=== PATIENT | female | born 1955 | race Caucasian/White ===

== ENCOUNTER → 2018-03-26 06:46 | Outpatient (CLI) | payer MEDICARE, SELFPAY ==
--- NOTE | 2018-03-26 06:48 | ECHOL_ITS ---
Reason For Study: Pericardial effusion, SOB Procedure This was a limited 2D transthoracic echocardiogram. The exam was of adequate technical quality. Exam performed in department. Left Ventricle Normal LV size. Moderate global left ventricular systolic dysfunction. The estimated ejection fraction is 30 %. Right Ventricle Normal RV size. Normal systolic function. Atria The left atrium is mildly enlarged. Normal right atrium. Mitral Valve There is no mitral annular calcification. Normal mitral valve. Tricuspid Valve Normal tricuspid valve. Aortic Valve Trisinus/trileaflet aortic valve. Normal aortic valve. Pulmonic Valve The pulmonic valve is not well visualized. Great Vessels Normal sized aortic root. Pericardium/Pleural Moderate pericardial effusion. There are no echocardiographic indications of cardiac tamponade. MMode/2D Measurements & Calculations LVIDd: 4.4 cm IVSd: 1.4 cm Ao root diam: 2.7 cm LVIDs: 3.4 cm LVPWd: 1.2 cm LA dimension: 4.2 cm RVDd: 2.6 cm FS: 22.5 % LAV(MOD-sp4): 55.8 ml LA A4 area: 19.0 cm2 RA A4 area: 8.1 cm2 Interpretation Summary Moderate global left ventricular systolic dysfunction. The estimated ejection fraction is 30 %. The left atrium is mildly enlarged. Moderate pericardial effusion. There are no echocardiographic indications of cardiac tamponade. Ordering Physician: Lv Kelsey Referring Physician: Lv Kelsey Performed By: Stacy Garcia RDCS
--- NOTE | 2018-03-26 10:23 | STRESSREP_ITS ---
Stress Test Report Date: 03/26/2018 Procedure: Pharmacologic stress nuclear imaging study Indications: Shortness of breath/dyspnea; cardiomyopathy Consent: Per the patient Procedure: The patient underwent pharmacologic (Regadenoson) evaluation with a peak heart rate of 105 beats per minute (35 predicted maximal heart rate) and a peak blood pressure of 160/90 mmHg. The baseline ECG demonstrated sinus rhythm; poor R-wave progression; nonspecific ST and T-wave abnormality. The peak pharmacologic ECG demonstrated continued nonspecific ST and T-wave abnormality. There were no cardiac dysrhythmias pretest, during pharmacologic infusion, or recovery. There was no complaint of chest discomfort during pharmacologic infusion or recovery. The examination was discontinued secondary to completion of protocol. Impression: 1. Pharmacologic (Regadenoson) evaluation 2. Peak pharmacologic ECG with nonspecific ST and T-wave abnormality. 3. No cardiac dysrhythmias pretest, during pharmacologic infusion, or recovery 4. Nuclear images pending Myocardial perfusion imaging study: Technique: The patient was injected with 10.4 millicuries of technetium 99m Cardiolite and subsequently rest SPECT Cardiolite nuclear imaging was obtained in the horizontal long, vertical long, and short axis views. The patient underwent pharmacologic (Regadenoson) evaluation with a peak heart rate of 105 beats per minute (35 % percent predicted maximal heart rate) and a peak blood pressure of 160/90 mmHg. The patient was injected with 34 millicuries of technetium 99m Cardiolite and subsequently stress SPECT Cardiolite nuclear imaging was obtained in the horizontal long, vertical long, and short axis views. A gated Cardiolite study at peak stress was obtained. Interpretation: Rest and stress SPECT Cardiolite nuclear imaging status post realignment, normalization, and attenuation correction demonstrate the appearance of relative uniform tracer uptake and myocardial perfusion appearing within normal limits. There is diminished end systolic thickening and brightening. The gated Cardiolite study demonstrates diminished myocardial thickening and inward wall motion.. The reported LVEF is 40 %. Impression: 1. Rest and stress SPECT Cardiolite nuclear imaging demonstrate relative uniform tracer uptake and myocardial perfusion appearing within normal limits. 2. The gated Cardiolite study reports an LVEF of 40%. 3. The aforementioned findings appear compatible with an underlying cardiomyopathy This note was generated with [employer] software. It may contain incorrect words, spelling, and punctuation that were not noted in checking the note before signing.
== END ==
PROVIDERS: Visit Provider Internal Medicine Cardiovascular Disease
DX: I50.21 Acute systolic (congestive) heart failure (principal); R06.02 Shortness of breath
CPT/HCPCS: 78452; 93017; 93308; A9500; A4216; J2785

== ENCOUNTER → 2019-02-03 12:45 | Outpatient (CLI) | payer MEDICARE, SELFPAY ==
[2019-01-26 09:43] VITALS: BMI 28.5
--- NOTE | 2019-02-03 12:47 | ECHOL_ITS ---
Reason For Study: Pericardial effusion Procedure This was a limited 2D transthoracic echocardiogram. Limited views were obtained. Exam performed in department. Left Ventricle Normal LV size. Left ventricular systolic function is normal. The estimated ejection fraction is 55 %. Unable to assess diastolic dysfunction. No regional wall motion abnormalities noted. Right Ventricle Normal RV size. Normal systolic function. Atria Normal left atrium. Normal right atrium. Mitral Valve There is no mitral annular calcification. Normal mitral valve. Tricuspid Valve Normal tricuspid valve. Aortic Valve Trisinus/trileaflet aortic valve. Normal aortic valve. Pulmonic Valve The pulmonic valve is not well visualized. Great Vessels Normal sized aortic root. Pericardium/Pleural Small pericardial effusion. There are no echocardiographic indications of cardiac tamponade. MMode/2D Measurements & Calculations LVIDd: 3.6 cm IVSd: 1.3 cm Ao root diam: 3.1 cm LVIDs: 2.5 cm LVPWd: 1.2 cm RVDd: 2.9 cm FS: 29.1 % LAV(MOD-bp): 38.2 ml EDV(MOD-sp4): 57.5 ml EDV(MOD-sp2): 46.1 ml LAV(MOD-bp) Indexed: 21.8 ml/m2 ESV(MOD-sp4): 25.0 ml EF(MOD-sp2): 61.2 % LAV(MOD-sp2): 39.0 ml EF(MOD-sp4): 56.5 % LAV(MOD-sp4): 37.9 ml SV(MOD-sp4): 32.5 ml SV(MOD-sp2): 28.2 ml LA A4 area: 14.9 cm2 LA dimension(2D): 3.7 cm RA A4 area: 9.2 cm2 Interpretation Summary Limited views were obtained. Left ventricular systolic function is normal. The estimated ejection fraction is 55 %. Small pericardial effusion. There are no echocardiographic indications of cardiac tamponade. Unable to assess diastolic dysfunction. Ordering Physician: Rene Rabago/Lv Kelsey Referring Physician: Aylin Alvarez Performed By: Stacy Garcia RDCS
== END ==
PROVIDERS: Family Provider Internal Medicine; PCP Internal Medicine; Referring Provider Nurse Practitioner Family; Visit Provider Nurse Practitioner Family
DX: I31.3 Pericardial effusion (noninflammatory) (principal); I42.8 Other cardiomyopathies
CPT/HCPCS: 93308

== ENCOUNTER → 2019-05-11 | Outpatient (CLI) | payer MEDICARE, SELFPAY ==
[2019-01-26 09:43] VITALS: BMI 28.5
--- NOTE | 2019-05-11 08:49 | ECHOD_ITS ---
Reason For Study: Pericardial effusion Procedure This was a 2D Doppler, Color Flow transthoracic echocardiogram. Exam performed in department. Left Ventricle Normal LV size. Left ventricular systolic function is normal. The estimated ejection fraction is 65 %. Diastolic function is indeterminate. No regional wall motion abnormalities noted. Right Ventricle Normal RV size. Normal systolic function. Atria Normal left atrium. Normal right atrium. No doppler evidence for ASD. Mitral Valve There is no mitral annular calcification. Normal mitral valve. Trivial mitral valve insufficiency. Tricuspid Valve Normal tricuspid valve. Trivial tricuspid valve insufficiency. Aortic Valve Trisinus/trileaflet aortic valve. Normal aortic valve. Pulmonic Valve The pulmonic valve is not well visualized. Trivial pulmonic valve insufficiency. Great Vessels Normal sized aortic root. Pericardium/Pleural Small pericardial effusion. There are no echocardiographic indications of cardiac tamponade. MMode/2D Measurements & Calculations LVIDd: 3.6 cm IVSd: 0.86 cm Ao root diam: 3.1 cm LVIDs: 2.6 cm LVPWd: 0.90 cm RVDd: 2.4 cm FS: 27.9 % LAV(MOD-bp): 46.3 ml LVAd ap4: 23.3 cm2 SV(MOD-sp4): 33.3 ml LAV(MOD-bp) Indexed: 26.3 ml/m2 EDV(MOD-sp4): 58.2 ml LAV(MOD-sp2): 57.6 ml EDV(sp4-el): 60.4 ml LAV(MOD-sp4): 36.0 ml LVAs ap4: 13.7 cm2 ESV(MOD-sp4): 24.9 ml ESV(sp4-el): 23.8 ml EF(MOD-sp4): 57.2 % EF(sp4-el): 60.6 % SV(sp4-el): 36.6 ml LA A4 area: 14.6 cm2 LA dimension(2D): 3.6 cm RA A4 area: 9.5 cm2 Doppler Measurements & Calculations MV E max feliz: 44.1 cm/sec Lat Peak E' Feliz: 4.0 cm/sec Med Peak E' Feliz: 2.5 cm/sec MV A max feliz: 86.4 cm/sec E/E' lat: 11.0 E/E' med: 17.5 MV E/A: 0.51 Ao V2 max: 123.4 cm/sec LV V1 max: 84.0 cm/sec PA V2 max: 73.8 cm/sec Ao max P.1 mmHg LV V1 max P.8 mmHg Interpretation Summary Left ventricular systolic function is normal. The estimated ejection fraction is 65 %. Trivial mitral valve insufficiency. Trivial tricuspid valve insufficiency. Trivial pulmonic valve insufficiency. Small pericardial effusion. There are no echocardiographic indications of cardiac tamponade. Diastolic function is indeterminate. Ordering Physician: Lv Kelsey Referring Physician: Aylin Posadas Performed By: Stacy Garcia ED
== END | disposition home or self-care (01) ==
PROVIDERS: Family Provider Internal Medicine; PCP Internal Medicine; Referring Provider Internal Medicine Cardiovascular Disease; Visit Provider Internal Medicine Cardiovascular Disease
DX: I31.3 Pericardial effusion (noninflammatory) (principal); I42.8 Other cardiomyopathies; I50.21 Acute systolic (congestive) heart failure
CPT/HCPCS: 93306

== ENCOUNTER → 2020-01-04 10:48 | Outpatient (CLI) | payer MEDICARE, SELFPAY ==
[2019-01-26 09:43] VITALS: BMI 28.5
[2019-09-13 09:50] VITALS: BMI 28.5
--- NOTE | 2020-01-04 10:50 | ECHOL_ITS ---
Reason For Study: Pericardial effusion, Non-Isch CMP Procedure This was a limited 2D transthoracic echocardiogram. Myocardial strain analysis was performed in this exam to aid in the assessment of cardiac function. Limited views were obtained. Exam performed in department. Left Ventricle Normal LV size. Left ventricular systolic function is normal. The estimated ejection fraction is 60 %. The global longitudinal strain = -17% (borderline). Unable to assess diastolic dysfunction. No regional wall motion abnormalities noted. Right Ventricle Normal RV size. Normal systolic function. Atria Normal left atrium. Normal right atrium. Mitral Valve There is no mitral annular calcification. Normal mitral valve. Tricuspid Valve Normal tricuspid valve. Aortic Valve Trisinus/trileaflet aortic valve. Normal aortic valve. Pulmonic Valve The pulmonic valve is not well visualized. Great Vessels Normal sized aortic root. Pericardium/Pleural Trivial pericardial effusion. There are no echocardiographic indications of cardiac tamponade. MMode/2D Measurements & Calculations LVIDd: 4.3 cm IVSd: 0.97 cm Ao root diam: 3.1 cm LVIDs: 2.6 cm LVPWd: 1.00 cm FS: 38.8 % LA dimension(2D): 3.6 cm Interpretation Summary Limited views were obtained. Left ventricular systolic function is normal. The estimated ejection fraction is 60 %. The global longitudinal strain = -17% (borderline). Trivial pericardial effusion. There are no echocardiographic indications of cardiac tamponade. Unable to assess diastolic dysfunction. Ordering Physician: Lv Kelsey Referring Physician: Aylni Alvarez Performed By: Stacy Garcia RDCS
== END ==
PROVIDERS: Family Provider Internal Medicine; PCP Internal Medicine; Referring Provider Internal Medicine Cardiovascular Disease; Visit Provider Internal Medicine Cardiovascular Disease
DX: I42.8 Other cardiomyopathies (principal); I31.3 Pericardial effusion (noninflammatory)
CPT/HCPCS: 93308

== ENCOUNTER 2020-08-14 10:26 | Observation (INO) | payer MEDICARE, SELFPAY ==
[2020-03-13 09:03] VITALS: BMI 28.5
[2020-08-14] VITALS (16 sets, daily range): BP systolic 94–212; BP diastolic 58–111; PULSE 63–100; RESP 13–24; TEMP 36.3–36.9; O2SAT 95–99; BMI 26.5; BMI 26.9
--- NOTE | 2020-08-14 10:37 | EKG12_ITS ---
Test Reason : AM EKG Blood Pressure : / mmHG Vent. Rate : 077 BPM Atrial Rate : 077 BPM P-R Int : 234 ms QRS Dur : 096 ms QT Int : 402 ms P-R-T Axes : 049 -24 062 degrees QTc Int : 454 ms Sinus rhythm with 1st degree A-V block Septal infarct , age undetermined , cannot be excluded Abnormal ECG Confirmed by MIKALA DOZIER, CASH ([id number]), copy editor LEXIE JEAN ([id number]) on 08/17/2020 10:22:03 AM Referred By: DR ANGUIANO Confirmed By:CASH BACH MD
--- NOTE | 2020-08-14 10:45 | ED.VIS.GEN ---
History of Present Illness Chief Complaint: Chest Pain Informant: Patient Onset: Today Narrative: 64-year-old female with past medical history of hypertension and diabetes presents with concern for chest pain. States it began approximately 6 hours ago. States it is aching in nature. States she does feel some tingling in her left arm. Denies any nausea, vomiting, diaphoresis. Denies any shortness of breath. Family history of heart disease. Former smoker. Past Medical History - Allergies and Home Meds Allergies/Adverse Reactions: Allergies aloe vera [From Vagisil] Allergy (Severe, Verified 08/14/20 10:27) Itching benzocaine [From Vagisil] Allergy (Severe, Verified 08/14/20 10:27) Itching levofloxacin [From Levaquin] Allergy (Severe, Verified 08/14/20 10:27) Swelling mineral oil [From Vagisil] Allergy (Severe, Verified 08/14/20 10:27) Itching resorcinol [From Vagisil] Allergy (Severe, Verified 08/14/20 10:27) Itching starch [From Vagisil] Allergy (Severe, Verified 08/14/20 10:27) Itching Sulfa (Sulfonamide Antibiotics) Allergy (Severe, Verified 08/14/20 10:27) Itching vitamin E (d-alpha tocopherol) [From Vagisil] Allergy (Severe, Verified 08/14/20 10:27) Itching vitamins A and D [From Vagisil] Allergy (Severe, Verified 08/14/20 10:27) Itching Prior records reviewed: Yes Past Medical History: - - HTN and DMII Smoking Status: Former smoker Alcohol: None Drugs: None Review of Systems General: Denies: Chills, Fever, Sweats Eyes: Denies: Visual changes - bilaterally, Diplopia ENT: Denies: Rhinorrhea, Sore throat Cardiovascular: Reports: Chest pain. Denies: Palpitations Respiratory: Denies: Dyspnea, Cough, Dyspnea on exertion Gastrointestinal: Denies: Abdominal pain, Nausea, Vomiting, Diarrhea, Melena, Hematochezia Genitourinary: Denies: Dysuria, Hematuria, Frequency Musculoskeletal: Denies: Back pain, Extremity Pain Skin: Denies: Rash, Wounds Neurological: Reports: Parasthesia. Denies: Headache, Weakness, Numbness Physical Exam Vital Signs/Narrative: Vital Signs Temp Pulse Resp BP Pulse Ox 08/14/20 10:28 97.3 F L 100 16 212/111 H 99 Inital Vital Signs reviewed: Yes General: Well nourished, Well developed, No Acute Distress Head: Normocephalic, Atraumatic Eyes: Perrl, EOMI ENT: Moist mucous membranes, No rhinorrhea Neck: Supple, Nontender Cardiovascular: Regular rate, Regular rhythm, No murmurs Respiratory: No distress, CTA bilaterally, Chest nontender Abdomen: Soft, Nontender, Nondistended, Normal bowel sounds Back: Nontender, Normal Inspection Extremities: Nontender, No edema Skin: Normal color, No rash Neurological: Alert, Oriented x3, Cranial nerves II-XII grossly intact, Normal Strength, Normal Sensation Psychological: Normal affect, Normal Mood Diagnostic/Tx/Re-eval Chest X-Ray - ED: 1 View, Normal Clinical Impression(s) from Imaging Studies Chest X-Ray 08/14/20 11:15 IMPRESSION: Normal x-ray examination of the chest. Electronically Signed: Mian Bingham MD at 12:32 EDT Tel , Service support , Laboratory Data 08/14/20 08/14/20 10:48 10:48 WBC 4.2 L RBC 3.45 L Hgb 10.6 L Hct 34.2 L MCV 99.1 H MCH 30.7 MCHC 31.0 L RDW Std Deviation 45.7 H RDW Coeff of Leni 12.5 Plt Count 211 MPV 9.4 Immature Gran % (Auto) 0.200 Neut % (Auto) 59.4 Lymph % (Auto) 31.1 [place] % (Auto) 7.2 Eos % (Auto) 1.9 Baso % (Auto) 0.2 Absolute Neuts (auto) 2.5 Absolute Lymphs (auto) 1.29 Nucleated RBC % 0 Sodium 138 Potassium 4.6 Chloride 105 Carbon Dioxide 25.0 Anion Gap 8 BUN 43 H Creatinine 3.16 H Estim Creat Clear Calc 15.27 Est GFR (MDRD) Af Amer 19 L Est GFR (MDRD) Non-Af 16 L BUN/Creatinine Ratio 13.6 Glucose 186 H Calcium 9.5 Magnesium 2.5 Troponin I < 0.015 - Rhythm Strip Rhythm Strip: Sinus Rhythm Rate: 91 Ectopy: None - EKG Initial EKG Interpretation: Sinus Rhythm - Sinus rhythm at 91 bpm. SD interval 194 ms. QTC of 474 ms. No evidence of ST elevation or depression at this time. - Medical Decision Making Patient appears well and nontoxic. EKG nonischemic. Troponin negative. CKD at baseline. Given patient's extensive risk factors she will be admitted for further treatment evaluation. Patient given aspirin and nitroglycerin. Did have some chest pain reduction with nitroglycerin. Blood pressure reduced with nitroglycerin but quickly rebounded. Patient will take her home clonidine dose. Chest x-ray negative. Admitted in stable condition. 1. Chest pain 2. Uncontrolled hypertension 3. History of diabetes ED Disposition - Plan for ED Patient: Disposition: Acute Care [facility]
[2020-08-14] MEDS: Aspirin 81 MG TAB.CHEW 324 MG PO (10:54)
[2020-08-14] MEDS: Nitroglycerin SL (ED/IMG/CATH) 0.4 MG TABLET SUBLINGUAL ×2 (10:56→11:00)
[2020-08-14 10:57] LABS: Absolute Lymphocyte Count 1.29 X10^3/uL (0.83-4.51); Absolute Neutrophil Count 2.5 X10^3/uL (2.0-7.7); Basophil# 0.01 X10^3/uL; Basophil% 0.2 % (0-1); Eosinophil# 0.08 X10^3/uL; Eosinophils% 1.9 % (0-5); Hematocrit 34.2 % (37-47); Hemoglobin 10.6 g/dL (12.0-15.0); Lymphocyte # 1.29 X10^3/ul (4.0); Lymphocyte % 31.1 % (19-41); Mean Corpuscular Hgb 30.7 pg (27.0-32.0); Mean Corpuscular Volume 99.1 fL (81-99); Mean Platelet Vol. 9.4 fl (6.2-12.0); Monocyte% 7.2 % (0-10); NRBC Flagged by Analyzer 0 % (0-5); Neutrophil # 2.46 X10^3/uL (2.7-7.7); Neutrophil % 59.4 % (47-70); Platelet Count 211 K/mm3 (150-450); RBC Distribution Width CV 12.5 % (11.6-14.6); RBC Distribution Width SD 45.7 fl (35.1-43.9); Red Blood Count 3.45 M/mm3 (4.2-5.4); White Blood Count 4.2 K/mm3 (4.4-11.0)
[2020-08-14] MEDS: 0.9% Normal Saline 1,000 ML 500 ML IV (11:10)
[2020-08-14 11:14] LABS: Anion Gap 8 (5-15); BUN 43 mg/dL (7-18); BUN/Creat Ratio 13.6 RATIO (10-20); Calcium,Total 9.5 mg/dL (8.5-10.1); Chloride 105 mmol/L (98-107); Creatinine, Serum 3.16 mg/dL (0.55-1.02); EST Glomerular Filtration Rate 16 mL/min (>60); Est Glom Filt Rate - Afr Amer 19 mL/min (>60); Estimated Creatinine Clearance 15.27 ml/min; Glucose 186 mg/dL (74-106); Magnesium 2.5 mg/dL (1.6-2.6); Potassium 4.6 mmol/L (3.5-5.1); Sodium Level 138 mmol/L (136-145)
--- NOTE | 2020-08-14 11:15 | RAD_ITS ---
STUDY: X-RAY CHEST REASON FOR EXAM: Female, 64 years old. chest pain, epigastric pain TECHNIQUE: Single AP portable view of the chest. COMPARISON: 09/03/2011 FINDINGS: The lungs are clear and expanded. There is no demonstrated pleural abnormality. Normal size heart. Normal mediastinum and [place]. Normal visualized pulmonary arteries. Normal visualized aortic arch and descending thoracic aorta. Normal visualized thoracic spine. Normal visualized ribs, clavicles, and shoulders. There is no demonstrated abnormality of the visualized soft tissue structures of the upper abdomen. RAD/Chest 1 View (Portable) IMPRESSION: Normal x-ray examination of the chest. Electronically Signed: Mian Bingham MD at 12:32 EDT Tel , Service support ,
--- NOTE | 2020-08-14 13:52 | PCM.HP.STD ---
Problem List (1) CKD (chronic kidney disease) stage 4, GFR 15-29 ml/min Status: Chronic (2) Renal transplant recipient Status: Chronic Comment: 2011 with failing transplant and on tranplant list currently at [facility] (3) Anemia Status: Chronic Qualifiers: Anemia type: due to chronic kidney disease (4) Diabetes Status: Chronic Qualifiers: Diabetes mellitus type: type 2 (5) Nonischemic cardiomyopathy Status: Chronic (6) Pure hypercholesterolemia Status: Chronic (7) Essential (primary) hypertension Status: Chronic (8) Cardiomegaly Status: Chronic History of Present Illness Date of Admission: 08/14/20 Chief Complaint: CP Ms Moreira is a 64 yo female who presented to the ED at [facility] on 08/14/2020 with CP. She has a PMH of CKD stage 4 with previous transplant (2011) and is currently on the transplant list at [facility], HTN, HPL, Non-ischemic CM, DM-2, chronic anemia, depression, and gout. She states that she awoke at about 4 am today and had burning in her chest in the epigastric area and L arm tingling. She states that she took 2 APAP, had a cup of tea and went back to sleep. She the awoke at about 7 and the arm tingling was gone but the burning in the epigastrium persisted. Her father had an HI and had similar sx so she decided to come to the ED for evaluation. She stated that her CP was about a 2/10 when she got here, had no associated sx and was given nitro which reduced her pain to 0.5/10. A second nitro was given and dropped her pressure. She is now CP free. She has been markedly hypertensive in the ED (except when given the nitro) and states that she normally runs in the 130/70 range at home with her meds. She admits to having white coat HTN as well. She states that she is due for her clonidine now. Her VS are otherwise stable. EKG shows no ST/T wave changes c/w ischemia and her initial troponin in the ED was neg despite sCr of 3.16. She states that her baseline sCr is about 2.8-3.2. She has anemia which is chronic and her BGT is 186. She remains CP free at this time. She states that she had a Stress test at [facility] > 1 yr ago that was negative. Past Medical History Past Medical History (Chronic Problems): Chronic Problems (Last Reviewed 09/13/19 @ 09:57 by Dawna Simmons) CKD (chronic kidney disease) stage 4, GFR 15-29 ml/min (Chronic) Renal transplant recipient (Chronic) 2011 with failing transplant and on tranplant list currently at [facility] Anemia (Chronic) Diabetes (Chronic) Nonischemic cardiomyopathy (Chronic) Pure hypercholesterolemia (Chronic) Essential (primary) hypertension (Chronic) Cardiomegaly (Chronic) Medical History: Medical History (Last Reviewed 08/14/20 @ 14:[address] Nicky Mathis, DO) Nonischemic cardiomyopathy (Chronic) I42.8 Pure hypercholesterolemia (Chronic) E78.00 Essential (primary) hypertension (Chronic) I10 Cardiomegaly (Chronic) I51.7 Type 2 diabetes mellitus E11.9 Allergies aloe vera [From Vagisil] Allergy (Severe, Verified 08/14/20 10:27) Itching benzocaine [From Vagisil] Allergy (Severe, Verified 08/14/20 10:27) Itching levofloxacin [From Levaquin] Allergy (Severe, Verified 08/14/20 10:27) Swelling mineral oil [From Vagisil] Allergy (Severe, Verified 08/14/20 10:27) Itching resorcinol [From Vagisil] Allergy (Severe, Verified 08/14/20 10:27) Itching starch [From Vagisil] Allergy (Severe, Verified 08/14/20 10:27) Itching Sulfa (Sulfonamide Antibiotics) Allergy (Severe, Verified 08/14/20 10:27) Itching vitamin E (d-alpha tocopherol) [From Vagisil] Allergy (Severe, Verified 08/14/20 10:27) Itching vitamins A and D [From Vagisil] Allergy (Severe, Verified 08/14/20 10:27) Itching Home Medications: Ambulatory Orders Medication Instructions Recorded fluticasone propionate 50 2 spray INTRANASAL DAILY 03/10/18 mcg/actuation nasal spray,suspension linagliptin 5 mg tablet 5 mg PO LUNCH 03/10/18 loratadine 10 mg tablet 10 mg PO DAILY 03/10/18 dulaglutide 1.5 mg/0.5 mL 1.5 mg SC TH 03/11/18 subcutaneous pen injector multivit with 1 tab PO DAILY tab 03/11/18 lhallrtm-pxpz-HA-lutein 8 mg iron-400 mcg-300 mcg tablet pravastatin 20 mg tablet 20 mg PO QHS 03/11/18 mycophenolate mofetil 250 mg 750 mg PO BID cap 07/31/18 capsule calcitriol 0.25 mcg capsule 0.25 mcg PO MOWEFR cap 01/26/19 glipizide 10 mg tablet 10 mg PO BID tab 01/26/19 iron,carbonyl 65 mg-vitamin C 125 1 tab PO TID tab 01/26/19 mg tablet,delayed release clonidine HCl 0.2 mg tablet 0.2 mg PO BID tab 09/13/19 Baking soda liquid 0.5 tsp PO 03/13/20 cholecalciferol (vitamin D3) 50 5,000 unit PO DAILY cap 03/13/20 mcg (2,000 unit) capsule cyclosporine 25 mg capsule 50 mg PO BID 03/13/20 polyethylene glycol 3350 17 17 g PO QODAY g 03/13/20 gram/dose oral powder Allopurinol 100 mg PO DAILY 08/14/20 Aspirin E.C. [Ecotrin] 81 mg PO DAILY@0800 08/14/20 Bupropion HCl [Wellbutrin Xl] 300 mg PO DAILY 08/14/20 Carvedilol 6.25 mg PO BID 08/14/20 Famotidine 20 mg PO DAILY 08/14/20 Isosorbide Mononitrate [Isosorbide 30 mg PO DAILY 08/14/20 Mononitrate ER] Sodium Bicarbonate 325 mg PO DAILY 08/14/20 Surgical History: Surgical History (Last Reviewed 08/14/20 @ 14:[address] Nicky Mathis DO) Kidney transplant recipient Onset Date: ~2011 Z94.0 H/O local excision of skin lesion Z98.890 skin ca removed rt arm History of arthroscopic knee surgery Z98.890 History of cataract surgery Z98.49 Status post biopsy of kidney Z98.890 Psychiatric History: Depression RIG HAND History: No pertinent RIG HAND history Lives: Spouse/ Significant Other Smoking Status: Former smoker Alcohol: None Drugs: None Review of Systems Constitutional: Denies: Anorexia, Chills, Fever, Malaise, Weakness, Weight Change, Fatigue Eyes: Denies: Blurred vision, Conjunctivae Inflammation, Drainage, Eyelid Inflammation, Pain, Redness, Vision Change HEENT: Denies: Difficulty Hearing, Ear Pain, Eye Pain, Head Aches, Nasal bleeding, Nasal Congestion, Post Nasal Drip, Sinus Congestion, Sinus Drainage, Sore Throat, Visual Changes Cardiovascular: Reports: Chest Pain, Chest Pressure. Denies: Claudication, Chest Tightness, Edema, Heaviness, Light Headedness, Orthopnea, Palpitations, Paroxysmal Noc. Dyspnea, Syncope Respiratory: Denies: Cough, Hemoptysis, Pleuritic Pain, Shortness of Breath, Shortness of breath at rest, Shortness of breath upon exertion, Sputum production, Wheezing Gastrointestinal: Reports: Dyspepsia. Denies: Abdominal Pain, Constipation, Diarrhea, Hematemesis, Hematochezia, Nausea, Melena, Vomiting Genitourinary: Denies: Dysuria, Frequency, Hematuria, Hesitancy, Incontinence, Nocturia, Retention, Urgency Musculoskeletal: Denies: Arm Pain, Back Pain, Joint stiffness, Joint swelling, Joint Tenderness, Leg Pain, Muscle pain, Neck Pain Skin: Denies: Dryness, Jaundice, Lesions, Pruritis, Rash, Skin Changes, Wounds Neurological: Denies: Balance problems, Blurred vision, Double vision, Change in Speech, Slurred speech, Confusion, Difficulty swallowing, Focal weakness, Headaches, Incoordination, Numbness, Tremor, Seizures Psychiatric: Reports: Depression. Denies: Anxiety Endocrine: Denies: Change in Body Habitus, Heat/ Cold Intolerance, Polydipsia, Polyuria Hematologic/ Lymphatic: Reports: Anemia, Easy Bruising, Easy Bleeding. Denies: Adenopathy, Petechiae, Purpura VTE Information - Inpt Only VTE Present on Admission: No VTE Mechan Device Prophylaxis: None VTE Pharm Prophylaxis ordered?: Yes - Physical Exam Vitals/I&O's: Vital Signs Temp Pulse Resp BP Pulse Ox 97.3 F L 85 24 H 198/109 H 96 08/14/20 10:28 08/14/20 13:39 08/14/20 13:39 08/14/20 13:39 08/14/20 13:39 Oxygen Delivery Method Room Air Weight: 68.039 kg Body Mass Index (BMI) 26.5 General: Alert, Oriented x3, Cooperative, No apparent distress, Well developed, Well nourished, - - very pleasant WF lying in bed, appears comfortable HEENT: Atraumatic, PERRLA, EOMI, Normocephalic, EAC Clear Oral: Moist Mucosa, No Gingival or Mucosal Lesions/ Ulcerations Neck: Supple, No JVD, Negative Carotid Bruits, Negative Hepatojugular Reflux, No Nuchal Rigidity, Trachea Midline, Thyroid Normal Size and Texture Lungs: Clear to auscultation, Normal air movement, No rhonchi, No wheeze, No rales Cardiovascular: Regular rate, Regular Rhythm, Normal S1, Normal S2, No murmurs, No Ectopic Activity, Gallops - S4, - Abdomen: Bowel Sounds Present, Soft, Non Tender, Non-Distended, No Hepato-splenomegaly, No hernias noted Extremities: No clubbing, No cyanosis, No edema, Capillary Refill Less than 3 Seconds, Peripheral Pulses Normal Skin: No rashes, No breakdown Musculoskeletal: No Tenderness to Palpation of Joints or Extremities, No Muscle Wasting, Arthritic Changes Lymphatic: No Cervical, Supraclavicular, or Inguinal Adenopathy Neurological: Cranial nerves II-XII grossly intact, Deep Tendon Reflexes 2+/4 and Symmetrical, Neuro grossly intact, Motor Exam 5/5 strength throughout, Muscle tone normal, Sensory exam intact to light touch and pain, Coordination normal Psych/Mental Status: Normal Affect, Appropriate, Alert and oriented to time, place, person, mood and affect Laboratory Results 08/14/20 10:48: WBC 4.2 L, RBC 3.45 L, Hgb 10.6 L, Hct 34.2 L, MCV 99.1 H, MCH 30.7, MCHC 31.0 L, RDW Std Deviation 45.7 H, RDW Coeff of Leni 12.5, Plt Count 211, MPV 9.4, Immature Gran % (Auto) 0.200, Neut % (Auto) 59.4, Lymph % (Auto) 31.1, [place] % (Auto) 7.2, Eos % (Auto) 1.9, Baso % (Auto) 0.2, Absolute Neuts (auto) 2.5, Absolute Lymphs (auto) 1.29, Nucleated RBC % 0 08/14/20 10:48: Sodium 138, Potassium 4.6, Chloride 105, Carbon Dioxide 25.0, Anion Gap 8, BUN 43 H, Creatinine 3.16 H, Estim Creat Clear Calc 15.27, Est GFR (MDRD) Af Amer 19 L, Est GFR (MDRD) Non-Af 16 L, BUN/Creatinine Ratio 13.6, Glucose 186 H, Calcium 9.5, Magnesium 2.5, Troponin I < 0.015 Current Medications Nitroglycerin (Nitrostat) 0.4 mg SUBLINGUAL Q5M PRN PRN Reason: Chest pain Last Admin: 08/14/20 11:00 Dose: 0.4 mg Documented by: Assessment/Plan Chest Pain -TM stress test in am -cycle troponin -continue home ASA/Statin/BB -prn nitro -Admit to PCU CKD Stage 4 s/p renal transplant 2011 -sCr is a baseline (2.8-3.2) -monitor -on list for transplant at [facility] now -continue immunosuppressants -continue home sodium HCO3 -if nephro needs consulted pt would like [facility] Chronic Anemia 2/2 CKD -continue PO Fe -monitor counts HTN -markedly elevated in ED -pt pt typical BP is 130's/70's -cont home meds -will give PRN hydralazine for SBP > 160 Gout -cont Allopurinol DM-2 -continue Home meds -monitor BGT AC and HS HPL -continue statin HFrEF compensated -non-ischemic -continue home meds -stable DVT Prophylaxis -Heparin Code Status -Full Inpatient E&M: 79298 Init Hosp L3
--- NOTE | 2020-08-14 14:30 | EKG12_ITS ---
Test Reason : Blood Pressure : / mmHG Vent. Rate : 078 BPM Atrial Rate : 078 BPM P-R Int : 220 ms QRS Dur : 096 ms QT Int : 406 ms P-R-T Axes : 040 -21 041 degrees QTc Int : 462 ms Sinus rhythm with 1st degree A-V block Leftward axis Poor R wave progression Confirmed by MIKALA DOZIER, CASH ([id number]), editor in chief LEXIE JEAN ([id number]) on 08/17/2020 10:22:57 AM Referred By: SILVIO Confirmed By:CASH BACH MD
[2020-08-14] MEDS: Heparin Injection (Vial) 5,000 UNIT/ML VIAL 5000 UNIT SC ×2 (15:32→22:11)
[2020-08-14] MEDS: hydrALAZINE 20 MG/ML Vial 10 MG IV (17:18)
[2020-08-14] MEDS: 0.9% Saline Lock 10 ML Syringe IV (17:18)
[2020-08-14] MEDS: glipiZIDE 10 MG Tablet PO (17:18)
[2020-08-14] MEDS: Carvedilol 6.25 MG Tablet PO (22:11)
[2020-08-14] MEDS: cloNIDine HCl 0.2 MG Tablet PO (22:11)
[2020-08-14] MEDS: Pravastatin 20 MG Tablet PO (22:11)
[2020-08-15] VITALS (10 sets, daily range): BP systolic 138–182; BP diastolic 71–91; PULSE 77–92; RESP 16–18; TEMP 36.6–36.9; O2SAT 94–100
--- NOTE | 2020-08-15 05:55 | EKG12_ITS ---
Test Reason : CP Blood Pressure : / mmHG Vent. Rate : 091 BPM Atrial Rate : 091 BPM P-R Int : 194 ms QRS Dur : 096 ms QT Int : 386 ms P-R-T Axes : 053 -11 068 degrees QTc Int : 474 ms Normal sinus rhythm Septal infarct , age undetermined Abnormal ECG Confirmed by LOGAN DOZIER, TUCKER ([id number]), editor school photograph LEXIE JEAN ([id number]) on 08/21/2020 8:38:22 A M Referred By: JORJE/ROQUE Confirmed By:DILLON FORD MD
[2020-08-15] MEDS: cloNIDine HCl 0.2 MG Tablet PO (06:02)
[2020-08-15] MEDS: Aspirin E.C. 81 MG Tablet PO (06:02)
[2020-08-15] MEDS: 0.9% Saline Lock 10 ML Syringe IV ×2 (06:03→06:36)
[2020-08-15] MEDS: Mycophenolate Mofetil 250 MG Capsule 750 MG PO (06:03)
[2020-08-15 06:19] LABS: Absolute Lymphocyte Count 1.52 X10^3/uL (0.83-4.51); Absolute Neutrophil Count 2.3 X10^3/uL (2.0-7.7); Basophil# 0.02 X10^3/uL; Basophil% 0.5 % (0-1); Eosinophil# 0.14 X10^3/uL; Eosinophils% 3.2 % (0-5); Hematocrit 35.1 % (37-47); Hemoglobin 10.7 g/dL (12.0-15.0); Lymphocyte # 1.52 X10^3/ul (4.0); Lymphocyte % 34.7 % (19-41); Mean Corp Hgb Conc 30.5 g/dL (32-36); Mean Corpuscular Hgb 30.8 pg (27.0-32.0); Mean Corpuscular Volume 101.2 fL (81-99); Mean Platelet Vol. 9.7 fl (6.2-12.0); Monocyte# 0.43 X10^3/uL; Monocyte% 9.8 % (0-10); NRBC Flagged by Analyzer 0 % (0-5); Neutrophil # 2.25 X10^3/uL (2.7-7.7); Neutrophil % 51.3 % (47-70); Platelet Count 222 K/mm3 (150-450); RBC Distribution Width CV 12.6 % (11.6-14.6); RBC Distribution Width SD 46.5 fl (35.1-43.9); Red Blood Count 3.47 M/mm3 (4.2-5.4); White Blood Count 4.4 K/mm3 (4.4-11.0)
[2020-08-15] MEDS: hydrALAZINE 20 MG/ML Vial 10 MG IV (06:36)
[2020-08-15 06:56] LABS: ALB/GLOB Ratio 1.1 RATIO (0.9-2.4); AST(SGOT) 23 U/L (15-37); Alanine Aminotransfer ALT/SGPT 38 U/L (13-56); Albumin, Serum 3.8 g/dL (3.2-5.0); Alkaline Phosphatase 165 U/L (45-117); Anion Gap 7 (5-15); BUN 37 mg/dL (7-18); BUN/Creat Ratio 13.5 RATIO (10-20); Calcium,Total 9.4 mg/dL (8.5-10.1); Chloride 108 mmol/L (98-107); Cholesterol 222 mg/dL (200); Creatinine, Serum 2.74 mg/dL (0.55-1.02); EST Glomerular Filtration Rate 19 mL/min (>60); Est Glom Filt Rate - Afr Amer 23 mL/min (>60); Estimated Creatinine Clearance 17.61 ml/min; Globulin 3.5 g/dL (2.2-4.2); Glucose 128 mg/dL (74-106); High Density Lipoprotein 34 mg/dL; Magnesium 2.5 mg/dL (1.6-2.6); Phosphorus 3.7 mg/dL (2.5-4.9); Potassium 4.5 mmol/L (3.5-5.1); Protein, Total 7.3 g/dL (6.4-8.2); Sodium Level 139 mmol/L (136-145); Triglycerides 535 mg/dL
--- NOTE | 2020-08-15 11:50 | STRESSREP ---
Stress Test Report Date: 08-15-2020 Procedure: Pharmacologic stress nuclear imaging study Indications: Chest pain; status post renal transplant Consent: Per the patient Procedure: The patient underwent pharmacologic (Regadenoson) evaluation with a peak heart rate of 104 beats per minute (65%predicted maximal heart rate) and a peak blood pressure of 187/97 mmHg. The baseline ECG demonstrated normal sinus rhythm. The peak pharmacologic ECG demonstrated no obvious ECG changes. There were no cardiac dysrhythmias pretest, during pharmacologic infusion, or recovery. There was no complaint of chest discomfort during pharmacologic infusion or recovery. The examination was discontinued secondary to completion of protocol. Impression: 1. Pharmacologic (Regadenoson) evaluation 2. Peak pharmacologic ECG with no obvious ECG changes. 3. There were no cardiac dysrhythmias pretest, during pharmacologic infusion, or recovery. 4. Nuclear images pending Myocardial perfusion imaging study: Technique: The patient was injected with 10.0 millicuries of technetium 99m Cardiolite and subsequently rest SPECT Cardiolite nuclear imaging was obtained in the horizontal long, vertical long, and short axis views. The patient underwent pharmacologic (Regadenoson) evaluation with a peak heart rate of 104 beats per minute (65% percent predicted maximal heart rate) and a peak blood pressure of 187/97 mmHg. The patient was injected with 35.0 millicuries of technetium 99m Cardiolite and subsequently stress SPECT Cardiolite nuclear imaging was obtained in the horizontal long, vertical long, and short axis views. A gated Cardiolite study at peak stress was obtained. Interpretation: Rest and stress SPECT Cardiolite nuclear imaging status post realignment, normalization, and attenuation correction demonstrate relative uniform tracer uptake and myocardial perfusion appearing within normal limits. There is end systolic thickening and brightening. The gated Cardiolite study demonstrates myocardial thickening and inward wall motion. The reported LVEF is 74%. Impression: 1. Relative uniform tracer uptake and myocardial perfusion appearing within normal limits. 2. The gated Cardiolite study reports an LVEF of 74%. This note was generated with [employer] software. It may contain incorrect words, spelling, and punctuation that were not noted in checking the note before signing.
[2020-08-15] MEDS: Loratadine 10 MG Tablet PO (12:38)
[2020-08-15] MEDS: Isosorbide Mononitrate 30 MG Tablet PO (12:41)
[2020-08-15] MEDS: Allopurinol 100 MG Tablet PO (12:43)
--- NOTE | 2020-08-15 13:06 | DCINST_ITS ---
- Discharge Diagnoses Current Active Problems: Current Active and Chronic Problems (Last Reviewed 08/14/20 @ 14:[address] Nicky Mathis DO) CKD (chronic kidney disease) stage 4, GFR 15-29 ml/min (Chronic) Renal transplant recipient (Chronic) 2011 with failing transplant and on tranplant list currently at [facility] Anemia (Chronic) Diabetes (Chronic) You will use the following diet at home:: Cardiac Your food should be the consistency of: Regular Your liquids should be the consistency of: Regular/Thin Discharge Activity: Return to Normal Activity, No Restrictions, May Drive Allergies/Adverse Reactions: Allergies aloe vera [From Vagisil] Allergy (Severe, Verified 08/14/20 10:27) Itching benzocaine [From Vagisil] Allergy (Severe, Verified 08/14/20 10:27) Itching levofloxacin [From Levaquin] Allergy (Severe, Verified 08/14/20 10:27) Swelling mineral oil [From Vagisil] Allergy (Severe, Verified 08/14/20 10:27) Itching resorcinol [From Vagisil] Allergy (Severe, Verified 08/14/20 10:27) Itching starch [From Vagisil] Allergy (Severe, Verified 08/14/20 10:27) Itching Sulfa (Sulfonamide Antibiotics) Allergy (Severe, Verified 08/14/20 10:27) Itching vitamin E (d-alpha tocopherol) [From Vagisil] Allergy (Severe, Verified 08/14/20 10:27) Itching vitamins A and D [From Vagisil] Allergy (Severe, Verified 08/14/20 10:27) Itching Medications to take at Discharge fluticasone propionate 50 mcg/actuation nasal spray,suspension 2 spray INTRANASAL DAILY 03/10/18 linagliptin 5 mg tablet 5 mg PO LUNCH 03/10/18 loratadine 10 mg tablet 10 mg PO DAILY 03/10/18 dulaglutide 1.5 mg/0.5 mL subcutaneous pen injector 1.5 mg SC TH 03/11/18 multivit with wwrdqjwx-scxo-QV-lutein 8 mg iron-400 mcg-300 mcg tablet 1 tab PO DAILY tab 03/11/18 pravastatin 20 mg tablet 20 mg PO QHS 03/11/18 mycophenolate mofetil 250 mg capsule 750 mg PO BID cap 07/31/18 calcitriol 0.25 mcg capsule 0.25 mcg PO MOWEFR cap 01/26/19 glipizide 10 mg tablet 10 mg PO BID tab 01/26/19 clonidine HCl 0.2 mg tablet 0.2 mg PO BID tab 09/13/19 Baking soda liquid 0.5 tsp PO 03/13/20 polyethylene glycol 3350 17 gram/dose oral powder 17 g PO QODAY g 03/13/20 Allopurinol 100 mg PO DAILY 08/14/20 Aspirin E.C. [Ecotrin] 81 mg PO DAILY@0800 08/14/20 Bupropion HCl [Wellbutrin Xl] 300 mg PO DAILY 08/14/20 Carvedilol 6.25 mg PO BID 08/14/20 Cholecalciferol (Vitamin D3) [Vitamin D3] 2,000 unit PO DAILY 08/14/20 Cyclosporine, Modified [Neoral] 50 mg PO BID 08/14/20 Famotidine 20 mg PO DAILY 08/14/20 Iron,Carbonyl/Ascorbic Acid [Vitron-C Tablet] 1 tab PO TID 08/14/20 Isosorbide Mononitrate [Isosorbide Mononitrate ER] 30 mg PO DAILY 08/14/20 Sodium Bicarbonate 325 mg PO DAILY 08/14/20 Primary Care Physician: Aylin Alvarez DO [Primary Care Provider] - Please follow up with your Primary Care Physician in: 1-2 weeks Test Results: Test results from this visit will be discussed in further detail at your follow-up appointment, if applicable. Please Follow Up With: Lv Kelsey MD When: as scheduled
--- NOTE | 2020-08-15 14:47 | DS.PCM_ITS ---
Discharge Date and Diagnosis Date of Admission: 08/14/20 Date of Discharge: 08/15/20 - Secondary Discharge Diagnosis Chronic Problems: Chronic Problems (Last Reviewed 08/14/20 @ 14:[address] iNcky Mathis DO) CKD (chronic kidney disease) stage 4, GFR 15-29 ml/min (Chronic) Renal transplant recipient (Chronic) 2011 with failing transplant and on tranplant list currently at [facility] Anemia (Chronic) Diabetes (Chronic) Nonischemic cardiomyopathy (Chronic) Pure hypercholesterolemia (Chronic) Essential (primary) hypertension (Chronic) Cardiomegaly (Chronic) Hospital Course and Treatment Imaging Results: Stress Test Report Date: 08-15-2020 Procedure: Pharmacologic stress nuclear imaging study Indications: Chest pain; status post renal transplant Consent: Per the patient Procedure: The patient underwent pharmacologic (Regadenoson) evaluation with a peak heart rate of 104 beats per minute (65%predicted maximal heart rate) and a peak blood pressure of 187/97 mmHg. The baseline ECG demonstrated normal sinus rhythm. The peak pharmacologic ECG demonstrated no obvious ECG changes. There were no cardiac dysrhythmias pretest, during pharmacologic infusion, or recovery. There was no complaint of chest discomfort during pharmacologic infusion or recovery. The examination was discontinued secondary to completion of protocol. Impression: 1. Pharmacologic (Regadenoson) evaluation 2. Peak pharmacologic ECG with no obvious ECG changes. 3. There were no cardiac dysrhythmias pretest, during pharmacologic infusion, or recovery. 4. Nuclear images pending Myocardial perfusion imaging study: Technique: The patient was injected with 10.0 millicuries of technetium 99m Cardiolite and subsequently rest SPECT Cardiolite nuclear imaging was obtained in the horizontal long, vertical long, and short axis views. The patient underwent pharmacologic (Regadenoson) evaluation with a peak heart rate of 104 beats per minute (65% percent predicted maximal heart rate) and a peak blood pressure of 187/97 mmHg. The patient was injected with 35.0 millicuries of technetium 99m Cardiolite and subsequently stress SPECT Cardiolite nuclear imaging was obtained in the horizontal long, vertical long, and short axis views. A gated Cardiolite study at peak stress was obtained. Interpretation: Rest and stress SPECT Cardiolite nuclear imaging status post realignment, normalization, and attenuation correction demonstrate relative uniform tracer uptake and myocardial perfusion appearing within normal limits. There is end systolic thickening and brightening. The gated Cardiolite study demonstrates myocardial thickening and inward wall motion. The reported LVEF is 74%. Impression: 1. Relative uniform tracer uptake and myocardial perfusion appearing within normal limits. 2. The gated Cardiolite study reports an LVEF of 74%. Operations: None Procedures: Stress test Summary of Care Provided: Ms Moreira is a 64 yo female who presented to the ED at [facility] on 08/14/2020 with CP. She has a PMH of CKD stage 4 with previous transplant (2011) and is currently on the transplant list at [facility], HTN, HPL, Non-ischemic CM, DM-2, chronic anemia, depression, and gout. She stated that she awoke at about 4 am on the day of admission and had burning in her chest in the epigastric area and L arm tingling. She stated that she took 2 APAP, had a cup of tea and went back to sleep. She the awoke at about 7 and the arm tingling was gone but the burning in the epigastrium persisted. Her father had an MT and had similar sx so she decided to come to the ED for evaluation. She stated that her CP was about a 2/10 when she got here, had no associated sx and was given nitro which reduced her pain to 0.5/10. A second nitro was given and dropped her pressure. She was CP free when I evaluated her in the ED. She had been markedly hypertensive in the ED (except when given the nitro) and states that she normally runs in the 130/70 range at home with her meds. Her BP was better at D/C but still not quite at goal but she insists that it has been okay at baseline. She is to keep an eye on this and f/u with her PCP in 1-2 weeks. She admits to having white coat HTN as well. Her VS were otherwise stable. EKG showed no ST/T wave changes c/w ischemia and her initial troponin in the ED was neg despite sCr of 3.16. She stated that her baseline sCr is about 2.8-3.2. She has anemia which is chronic and her BGT is 186. She was admitted and a TM stress test with imaging was done this am and was neg for any inducible ischemia. She was quite angry when I went to tell her that her test was negative because the test didn't get done until 10 am and she states that she was told I didn't order a study, which was inaccurate, as I had ordered it the day prior. She was also upset because she and to got without something to drink until the study was over. I apologized but explained that I had ordered the study and the delay was not up to me and was likely related to the number of tests that were ordered that day. She stated that she wished someone had told her why it wasn't done until 10 am. I again apologized and explained that until now I wasn't even aware that that is what time it was done. Subjective: Pt denies CP. States that she is upset about the timing of her study and that she was not allowed to drink anything. - Physical Exam Vitals/I&O's: Vital Signs Temp Pulse Resp BP Pulse Ox 98.4 F 90 16 159/72 H 97 08/15/20 13:30 08/15/20 13:30 08/15/20 13:30 08/15/20 13:30 08/15/20 13:30 Oxygen Delivery Method Room Air Weight: 69 kg Body Mass Index (BMI) 26.9 Intake and Output for Last 24 Hours 08/13/20 08/14/20 08/15/20 23:59 23:59 23:59 Intake Total 1400 / 1800 600 / 600 Balance 1400 / 1800 600 / 600 General: Alert, Oriented x3, Cooperative, No apparent distress, Well developed Lungs: Clear to auscultation, Normal air movement, No rhonchi, No wheeze, No rales Cardiovascular: Regular rate, Regular Rhythm, Normal S1, Normal S2, No murmurs, No Ectopic Activity, No rub noted, No Gallop Abdomen: Bowel Sounds Present, Soft, Non Tender, Non-Distended Extremities: No clubbing, No cyanosis, No edema, Capillary Refill Less than 3 Seconds, Peripheral Pulses Normal Neurological: Cranial nerves II-XII grossly intact, Neuro grossly intact Psych/Mental Status: Appropriate, - - angry Laboratory Results 08/14/20 14:41: Troponin I < 0.015 08/14/20 16:54: Troponin I < 0.015 08/15/20 05:38: WBC 4.4, RBC 3.47 L, Hgb 10.7 L, Hct 35.1 L, MCV 101.2 H, MCH 30.8, MCHC 30.5 L, RDW Std Deviation 46.5 H, RDW Coeff of Leni 12.6, Plt Count 222, MPV 9.7, Immature Gran % (Auto) 0.500, Neut % (Auto) 51.3, Lymph % (Auto) 34.7, [place] % (Auto) 9.8, Eos % (Auto) 3.2, Baso % (Auto) 0.5, Absolute Neuts (auto) 2.3, Absolute Lymphs (auto) 1.52, Nucleated RBC % 0 08/15/20 05:38: Sodium 139, Potassium 4.5, Chloride 108 H, Carbon Dioxide 24.0, Anion Gap 7, BUN 37 H, Creatinine 2.74 H, Estim Creat Clear Calc 17.61, Est GFR (MDRD) Af Amer 23 L, Est GFR (MDRD) Non-Af 19 L, BUN/Creatinine Ratio 13.5, Glucose 128 H, Calcium 9.4, Phosphorus 3.7, Magnesium 2.5, Total Bilirubin 0.30, AST 23, ALT 38, Alkaline Phosphatase 165 H, Total Protein 7.3, Albumin 3.8, Globulin 3.5, Albumin/Globulin Ratio 1.1, Triglycerides 535 H, Cholesterol 222 H , LDL Cholesterol TNP, VLDL Cholesterol TNP, HDL Cholesterol 34 L Discharge Activity: Return to Normal Activity, No Restrictions, May Drive Home Medications: Medications to take at Discharge fluticasone propionate 50 mcg/actuation nasal spray,suspension 2 spray INTRANASAL DAILY 03/10/18 linagliptin 5 mg tablet 5 mg PO LUNCH 03/10/18 loratadine 10 mg tablet 10 mg PO DAILY 03/10/18 dulaglutide 1.5 mg/0.5 mL subcutaneous pen injector 1.5 mg SC TH 03/11/18 multivit with [id number]-[id number]-OA-lutein 8 mg iron-400 mcg-300 mcg tablet 1 tab PO DAILY tab 03/11/18 pravastatin 20 mg tablet 20 mg PO QHS 03/11/18 mycophenolate mofetil 250 mg capsule 750 mg PO BID cap 07/31/18 calcitriol 0.25 mcg capsule 0.25 mcg PO MOWEFR cap 01/26/19 glipizide 10 mg tablet 10 mg PO BID tab 01/26/19 clonidine HCl 0.2 mg tablet 0.2 mg PO BID tab 09/13/19 Baking soda liquid 0.5 tsp PO 03/13/20 polyethylene glycol 3350 17 gram/dose oral powder 17 g PO QODAY g 03/13/20 Allopurinol 100 mg PO DAILY 08/14/20 Aspirin E.C. [Ecotrin] 81 mg PO DAILY@0800 08/14/20 Bupropion HCl [Wellbutrin Xl] 300 mg PO DAILY 08/14/20 Carvedilol 6.25 mg PO BID 08/14/20 Cholecalciferol (Vitamin D3) [Vitamin D3] 2,000 unit PO DAILY 08/14/20 Cyclosporine, Modified [Neoral] 50 mg PO BID 08/14/20 Famotidine 20 mg PO DAILY 08/14/20 Iron,Carbonyl/Ascorbic Acid [Vitron-C Tablet] 1 tab PO TID 08/14/20 Isosorbide Mononitrate [Isosorbide Mononitrate ER] 30 mg PO DAILY 08/14/20 Sodium Bicarbonate 325 mg PO DAILY 08/14/20 Primary Care Physician: Aylin Alvarez DO [Primary Care Provider] - Please follow up with your Primary Care Physician in: 1-2 weeks Please Follow Up With: Lv Kelsey MD When: as scheduled Medical Necessity - Tobacco Use Smoking Status: Former smoker Meaningful Use Info Meaningful Use Diagnoses (Choose all that apply): None applicable Inpatient E&M: 569[address] [facility]
== END 2020-08-15 13:07 | disposition home or self-care (01) ==
LOC: ED 12:12 → PCU 14:21
PROVIDERS: Admitting Provider Internal Medicine; Emergency Provider Emergency Medicine; PCP Internal Medicine; Visit Provider Internal Medicine
DX: R07.89 Other chest pain (principal); R20.2 Paresthesia of skin; E11.22 Type 2 diabetes mellitus with diabetic chronic kidney disease; I13.0 Hypertensive heart and chronic kidney disease with heart failure and stage 1 through stage 4 chronic kidney disease, or unspecified chronic kidney disease; N18.4 Chronic kidney disease, stage 4 (severe); D63.1 Anemia in chronic kidney disease; I50.30 Unspecified diastolic (congestive) heart failure; E78.00 Pure hypercholesterolemia, unspecified; F32.9 Major depressive disorder, single episode, unspecified; M10.9 Gout, unspecified; I42.8 Other cardiomyopathies; Z79.84 Long term (current) use of oral hypoglycemic drugs; Z87.891 Personal history of nicotine dependence; Z82.49 Family history of ischemic heart disease and other diseases of the circulatory system; Z79.899 Other long term (current) drug therapy; Z79.51 Long term (current) use of inhaled steroids; Z79.02 Long term (current) use of antithrombotics/antiplatelets; Z79.82 Long term (current) use of aspirin; Z94.0 Kidney transplant status
CPT/HCPCS: 36415; 71045; 78452; 80048; 80053; 80061; 83735; 84100; 84484; 85025; 93005; 93017; 96361; 96372; 96374; 96376; 99218; 99251; 99283; 99285; A9500; J7030; A4216; G0378; G0463; J2785

== ENCOUNTER → 2021-06-12 09:49 | Outpatient (CLI) | payer MEDICARE, SELFPAY ==
[2021-05-18 09:03] VITALS: BMI 26.4
--- NOTE | 2021-06-12 09:56 | ECHOD_ITS ---
Reason For Study: Non-Isch CMP Procedure This was a 2D Doppler, Color Flow transthoracic echocardiogram. Myocardial strain analysis was performed in this exam to aid in the assessment of cardiac function. The exam was of adequate technical quality. Exam performed in department. Left Ventricle Normal LV size. Left ventricular systolic function is normal. The estimated ejection fraction is 65 %. The global longitudinal strain = -18 % (normal). Diastolic function is indeterminate. No regional wall motion abnormalities noted. Right Ventricle Normal RV size. Normal systolic function. Atria Normal left atrium. Normal right atrium. No doppler evidence for ASD. Mitral Valve There is no mitral annular calcification. Normal mitral valve. Trivial mitral valve insufficiency. Tricuspid Valve Normal tricuspid valve. Trivial tricuspid valve insufficiency. Unable to estimate RV systolic pressure due to insufficient tricuspid regurgitant envelope. Aortic Valve Trisinus/trileaflet aortic valve. Normal aortic valve. Pulmonic Valve The pulmonic valve is not well visualized. Trivial pulmonic valve insufficiency. Great Vessels Normal sized aortic root. Pericardium/Pleural No pericardial effusion. MMode/2D Measurements & Calculations LVIDd: 3.1 cm IVSd: 1.0 cm Ao root diam: 2.9 cm LVIDs: 1.8 cm LVPWd: 0.99 cm RVDd: 2.4 cm FS: 42.8 % LAV(MOD-bp): 40.1 ml LVAd ap4: 21.9 cm2 LVAd ap2: 21.0 cm2 LAV(MOD-bp) Indexed: 23.5 ml/m2 LVLd ap4: 7.6 cm LVLd ap2: 7.7 cm LAV(MOD-sp2): 32.9 ml EDV(MOD-sp4): 51.9 ml EDV(MOD-sp2): 48.2 ml LAV(MOD-sp4): 45.9 ml EDV(sp4-el): 53.5 ml EDV(sp2-el): 48.6 ml LVAs ap4: 11.1 cm2 LVAs ap2: 12.4 cm2 LVLs ap4: 7.1 cm LVLs ap2: 7.0 cm ESV(MOD-sp4): 15.9 ml ESV(MOD-sp2): 19.3 ml ESV(sp4-el): 14.8 ml ESV(sp2-el): 18.8 ml EF(MOD-sp4): 69.5 % EF(MOD-sp2): 59.9 % EF(sp4-el): 72.2 % SV(MOD-sp4): 36.1 ml SV(MOD-sp2): 28.8 ml SV(sp4-el): 38.7 ml LA dimension(2D): 3.4 cm LA A4 area: 16.9 cm2 RA A4 area: 7.2 cm2 Doppler Measurements & Calculations MV E max feliz: 68.0 cm/sec Lat Peak E' Feliz: 5.7 cm/sec Med Peak E' Feliz: 4.2 cm/sec MV A max feliz: 102.0 cm/sec E/E' lat: 12.0 E/E' med: 16.2 MV E/A: 0.67 Ao V2 max: 140.3 cm/sec LV V1 max: 90.1 cm/sec PA V2 max: 99.0 cm/sec Ao max P.9 mmHg LV V1 max P.3 mmHg ECHO/Echo Complete Interpretation Summary Left ventricular systolic function is normal. The estimated ejection fraction is 65 %. The global longitudinal strain = -18 % (normal). Trivial mitral valve insufficiency. Trivial tricuspid valve insufficiency. Trivial pulmonic valve insufficiency. Unable to estimate RV systolic pressure due to insufficient tricuspid regurgita nt envelope. Diastolic function is indeterminate. Ordering Physician: Lv Kelsey Referring Physician: Aylin Alvarez Performed By: Stacy Garcia RDCS
== END ==
PROVIDERS: PCP Internal Medicine; Referring Provider Internal Medicine Cardiovascular Disease; Visit Provider Internal Medicine Cardiovascular Disease
DX: I42.8 Other cardiomyopathies (principal); E78.00 Pure hypercholesterolemia, unspecified; I12.9 Hypertensive chronic kidney disease with stage 1 through stage 4 chronic kidney disease, or unspecified chronic kidney disease; N18.4 Chronic kidney disease, stage 4 (severe); Z94.0 Kidney transplant status
CPT/HCPCS: 93306

== ENCOUNTER → 2022-04-22 | Outpatient (CLI) | payer MEDICARE, SELFPAY ==
[2022-04-22 14:08] LABS: ALB/GLOB Ratio 0.9 RATIO (0.9-2.4); AST(SGOT) 15 U/L (15-37); Alanine Aminotransfer ALT/SGPT 24 U/L (13-56); Albumin, Serum 3.2 g/dL (3.2-5.0); Alkaline Phosphatase 51 U/L (45-117); Anion Gap 8 (5-15); BUN 33 mg/dL (7-18); BUN/Creat Ratio 18.5 RATIO (10-20); Calcium,Total 9.6 mg/dL (8.5-10.1); Chloride 112 mmol/L (98-107); Creatinine, Serum 1.78 mg/dL (0.55-1.02); EST Glomerular Filtration Rate 30 mL/min (>60); Est Glom Filt Rate - Afr Amer 37 mL/min (>60); Globulin 3.5 g/dL (2.2-4.2); Glucose 104 mg/dL (74-106); Magnesium 1.9 mg/dL (1.6-2.6); Phosphorus 3.7 mg/dL (2.5-4.9); Potassium 5.1 mmol/L (3.5-5.1); Protein, Total 6.7 g/dL (6.4-8.2); Sodium Level 141 mmol/L (136-145)
== END | disposition home or self-care (01) ==
PROVIDERS: PCP Internal Medicine
DX: Z94.0 Kidney transplant status (principal)
CPT/HCPCS: 80053; 83735; 84100